=== PATIENT | male | born 1970 | race Two or more races ===

== ENCOUNTER 2021-02-15 22:15 | Inpatient (IN) | payer MEDICAID, OTHER ==
[~2021-02-15] VITALS: Ht 175.3 cm; Wt 97.5 kg
[2021-02-15] MEDS ORDERED: ONDANSETRON HCL 4MG/2ML INJ IV STA (23:29)
[2021-02-15] MEDS ORDERED: MORPHINE SULFATE 4 MG/ML CPJ (NOT FOR IM USE) IV STA (23:29)
[2021-02-15] MEDS ORDERED: SODIUM CHLORIDE 0.9% 1000ML BAG (SEPSIS BOLUS) IV ONE (23:30)
[2021-02-15] MEDS ORDERED: ACETAMINOPHEN 325MG TABLET PO ONE (23:30)
[2021-02-16] VITALS (16 sets, daily range): BP systolic 93–127; BP diastolic 53–73
[2021-02-16 00:40] LABS: HEMATOCRIT. 41.4 % (42.0-52.0); HEMOGLOBIN. 14.7 g/dL (14.0-18.0); MEAN CORPUSCULAR HEMOGLOBIN 28.9 pg (28.0-32.0); MEAN CORPUSCULAR VOLUME 81.3 fL (80.0-94.0); MEAN PLATELET VOLUME 9.9 fl (7.4-10.4); PLATELET 168 x1000/uL (130-400); RED BLOOD CELL COUNT 5.09 mill/uL (4.7-6.1); RED CELL DISTRIBUTION WIDTH 13.7 % (11.6-14.6)
[2021-02-16 00:49] LABS: CHLORIDE 105 mEq/L (98-107)
[2021-02-16 00:50] LABS: INR 1.1; PROTHROMBIN TIME 12.2 sec (9.6-11.0)
[2021-02-16] MEDS ORDERED: IOHEXOL-300 100 ML BOTTLE ONE (01:26)
[2021-02-16 01:27] LABS: CLARITY URINE CLEAR (CLEAR); COLOR URINE DARK YELLOW (YELLOW); KETONES URINE TRACE (NEGATIVE); LEUKOCYTE ESTERASE URINE NEGATIVE (NEGATIVE); NITRITE URINE NEGATIVE (NEGATIVE); OCCULT BLOOD URINE TRACE (NEGATIVE); PH URINE 5.5 (4.5-8.0); PROTEIN URINE 1+ (NEGATIVE)
[2021-02-16 03:04] LABS: PLATELET ESTIMATE NORMAL
[2021-02-16] MEDS ORDERED: PIPERACILLIN/TAZ 3.375G PREMIX 50 ML IV ONE (03:15)
[2021-02-16] MEDS ORDERED: VANCOMYCIN 1 G PREMIX 200 ML IV ONE (03:15)
[2021-02-16] MEDS ORDERED: POTASSIUM CHLORIDE 20MEQ TABLET SR PO ONE (03:15)
[2021-02-16] MEDS ORDERED: SIMV-43 MT (07:35)
[2021-02-16] MEDS ORDERED: MORPHINE SULFATE 2 MG/ML CPJ (NOT FOR IM USE) IV PRN (08:15)
[2021-02-16] MEDS: METRONIDAZOLE 500 MG PREMIX 100 ML IV SCH ×4 (10:00→21:28)
[2021-02-16] MEDS ORDERED: LIDOCAINE HCL 1% 20ML VIAL (Pyxis) INJ ONE (10:17)
[2021-02-16] MEDS ORDERED: SODIUM BICARBONATE 4% (2.4MEQ) 5ML VIAL IV ONE (10:18)
[2021-02-16] MEDS ORDERED: FENTANYL CITRATE/PF 50MCG/ML 2ML VIAL ONE (10:49)
[2021-02-16] MEDS ORDERED: FENTANYL CITRATE/PF 50MCG/ML 2ML VIAL IV ONE (11:15)
[2021-02-16] MEDS: LEVOFLOXACIN 500MG PREMIX 100 ML IV SCH (12:12)
[2021-02-16] MEDS ORDERED: ONDANSETRON HCL 4MG/2ML INJ IV PRN (15:00)
[2021-02-16] MEDS ORDERED: DOCUSATE SODIUM 250MG CAPSULE PO SCH (19:15)
[2021-02-16] MEDS ORDERED: HYDROCODONE/ACETAMINOPHEN 5/325MG TABLET PO PRN (19:15)
[2021-02-16] MEDS ORDERED: LACTULOSE 20G/30ML UDC PO NR (19:15)
[2021-02-16] MEDS ORDERED: ATORVASTATIN CALCIUM 20MG TABLET PO SCH (21:00)
[2021-02-16] MEDS: DOCUSATE SODIUM 100MG CAPSULE PO SCH (21:28)
[2021-02-16] MEDS: ACETAMINOPHEN 325MG TABLET PO PRN (21:46)
[2021-02-17] VITALS: BP 119/62
[2021-02-17 04:00] VITALS: BP 117/61
[2021-02-17] MEDS: METRONIDAZOLE 500 MG PREMIX 100 ML IV SCH ×3 (05:21→22:16)
[2021-02-17] MEDS: ACETAMINOPHEN 325MG TABLET PO PRN ×3 (05:21→22:36)
[2021-02-17 06:41] LABS: CHLORIDE 104 mEq/L (98-107)
[2021-02-17 06:51] LABS: BASOPHILS % 0.3 % (0.0-2.0); EOSINOPHILS % 0.7 % (0.0-5.0); HEMATOCRIT. 35.2 % (42.0-52.0); HEMOGLOBIN. 12.3 g/dL (14.0-18.0); LYMPHOCYTES % 9.4 % (20.0-50.0); MEAN CORPUSCULAR HEMOGLOBIN 28.9 pg (28.0-32.0); MEAN CORPUSCULAR VOLUME 82.4 fL (80.0-94.0); MEAN PLATELET VOLUME 9.7 fl (7.4-10.4); MONOCYTES % 6.5 % (2.0-8.0); NEUTROPHILS % 83.1 % (40.0-76.0); PLATELET 151 x1000/uL (130-400); RED BLOOD CELL COUNT 4.27 mill/uL (4.7-6.1); RED CELL DISTRIBUTION WIDTH 13.8 % (11.6-14.6)
[2021-02-17 08:00] VITALS: BP 111/69
[2021-02-17] MEDS: DOCUSATE SODIUM 100MG CAPSULE PO SCH (08:50)
[2021-02-17] MEDS: LEVOFLOXACIN 500MG PREMIX 100 ML IV SCH (09:11)
[2021-02-17 12:00] VITALS: BP 106/65
[2021-02-17] MEDS ORDERED: LEVO500T89 MT (14:08)
[2021-02-17] MEDS ORDERED: METR500T MT (14:08)
[2021-02-17 16:12] VITALS: BP 109/63
[2021-02-17 20:00] VITALS: BP 113/58
[2021-02-18] VITALS: BP 110/60
[2021-02-18 04:00] VITALS: BP 98/62
[2021-02-18] MEDS: METRONIDAZOLE 500 MG PREMIX 100 ML IV SCH ×3 (06:01→21:16)
[2021-02-18] MEDS: ACETAMINOPHEN 325MG TABLET PO PRN ×2 (06:01→21:05)
[2021-02-18 08:00] VITALS: BP 110/68
[2021-02-18] MEDS ORDERED: LEVOFLOXACIN 500MG PREMIX 100 ML IV SCH (09:00)
[2021-02-18] MEDS: DOCUSATE SODIUM 100MG CAPSULE PO SCH (09:12)
[2021-02-18] MEDS ORDERED: LEVOFLOXACIN 500MG TABLET PO SCH (11:00)
[2021-02-18 12:00] VITALS: BP 110/64
[2021-02-18 16:00] VITALS: BP 110/65
[2021-02-18] MEDS: CEFAZOLIN 1000MG PREMIX 50 ML IV SCH (18:15)
[2021-02-18 20:00] VITALS: BP 116/71
[2021-02-19] VITALS: BP 110/68
[2021-02-19] MEDS: CEFAZOLIN 1000MG PREMIX 50 ML IV SCH ×3 (00:59→16:44)
[2021-02-19 04:00] VITALS: BP 115/63
[2021-02-19] MEDS: METRONIDAZOLE 500 MG PREMIX 100 ML IV SCH ×2 (05:55→13:58)
[2021-02-19 08:00] VITALS: BP 100/70
[2021-02-19] MEDS: DOCUSATE SODIUM 100MG CAPSULE PO SCH (09:04)
[2021-02-19 12:00] VITALS: BP 107/50
[2021-02-19 16:00] VITALS: BP 100/50
[2021-02-19 16:49] VITALS: BP 110/70
== END 2021-02-19 17:53 | disposition home health service (06) | DRG 721 ==
LOC: ER 22:15 → 7WST 02-16 03:51 → ENRESERV 02-16 04:08 → 6WST 02-17 01:13
PROVIDERS: ADMIT Internal Medicine; ATTEND Internal Medicine
PROC: 0F9430Z Drainage of Gallbladder with Drainage Device, Percutaneous Approach (ICD-10-PCS; principal; 2021-02-16)
PROC: 0F943ZX Drainage of Gallbladder, Percutaneous Approach, Diagnostic (ICD-10-PCS; 2021-02-16)
DX: T81.49XA Infection following a procedure, other surgical site, initial encounter (principal); A41.9 Sepsis, unspecified organism; E87.1 Hypo-osmolality and hyponatremia; K68.11 Postprocedural retroperitoneal abscess; E66.9 Obesity, unspecified; E78.00 Pure hypercholesterolemia, unspecified; E78.5 Hyperlipidemia, unspecified; E87.6 Hypokalemia; J98.11 Atelectasis; K56.41 Fecal impaction; Z20.822 Contact with and (suspected) exposure to COVID-19; R74.01 Elevation of levels of liver transaminase levels; Y83.8 Other surgical procedures as the cause of abnormal reaction of the patient, or of later complication, without mention of misadventure at the time of the procedure; Z90.49 Acquired absence of other specified parts of digestive tract; Y92.89 Other specified places as the place of occurrence of the external cause; Z68.31 Body mass index [BMI] 31.0-31.9, adult
CPT/HCPCS: 36415; 49180; 71045; 74177; 77012; 78227; 80048; 80053; 81003; 83036; 83605; 83880; 84484; 85025; 87070; 87075; 87077; 87186; 93005; 99285; A9537; C1729; C1769; J0690; J1956; J2270; J2405; J2543; J3010; J3370; J3490; J7030; J7040; Q9967; U0003